=== PATIENT | female | born 1955 ===

== ENCOUNTER 2021-01-27 00:13 | Inpatient (IN) | payer OTHER ==
[~2021-01-27] VITALS: Ht 160 cm; Wt 48.1 kg
[2021-01-27 02:02] LABS: BASOPHILS ABSOLUTE AUTO 0.09 K/mm3 (0.00-0.23); BASOPHILS PERCENT AUTO 1 % (0-2); EOSINOPHILS ABSOLUTE AUTO 0.17 K/mm3 (0.00-0.68); EOSINOPHILS PERCENT AUTO 2 % (0-6); Hematocrit 40.1 % (33.0-51.0); Hemoglobin 12.7 g/dL (11.5-16.0); IMMATURE GRAN ABSOLUTE AUTO 0.02 K/mm3 (0.00-0.10); IMMATURE GRAN PERCENT AUTO 0 % (0-1); LYMPHOCYTES ABSOLUTE AUTO 1.83 K/mm3 (0.84-5.20); LYMPHOCYTES PERCENT AUTO 24 % (21-46); MONOCYTES ABSOLUTE AUTO 0.57 K/mm3 (0.16-1.47); MONOCYTES PERCENT AUTO 7 % (4-13); Mean Corpuscular HGB 30.8 pg (26.0-34.0); Mean Corpuscular HGB Conc 31.7 g/dL (31.5-36.5); Mean Corpuscular Volume 97 fL (80-100); Mean Platelet Volume 10.3 fL (9.1-12.4); NEUTROPHILS ABSOLUTE AUTO 5.01 K/mm3 (1.96-9.15); NEUTROPHILS PERCENT AUTO 65 % (41-73); Platelet Count 226 K/mm3 (150-400); RDW Coefficient Variation 13.2 % (11.7-14.2); RDW Standard Deviation 47.3 fL (35.1-46.3); Red Blood Cell Count 4.13 M/mm3 (3.80-5.20); White Blood Cell Count 7.69 K/mm3 (4.00-11.30)
[2021-01-27 02:20] LABS: Anion Gap 5 mmol/L (6-16); Blood Urea Nitrogen 14 mg/dL (8-24); Bun/Creatinine Ratio 18.4 (12.0-20.0); CO2, Blood 27 mmol/L (21-32); Calcium, Blood 8.8 mg/dL (8.5-10.1); Chloride, Blood 112 mmol/L (98-108); Creatinine, Blood 0.76 mg/dL (0.40-1.00); Glomerular Filtration Rate >60 (60-); Glucose, Blood 109 mg/dL (70-99); Potassium, Blood 3.6 mmol/L (3.5-5.5); Sodium, Blood 144 mmol/L (136-145); Troponin I 0.249 ng/mL (0.000-0.040)
[2021-01-27] MEDS ORDERED: TRAM50 PO (03:29)
[2021-01-27] MEDS ORDERED: ZOLPIDEM TARTRA10 MG PO (03:30)
[2021-01-27] MEDS ORDERED: OMEP20ER (03:30)
[2021-01-27] MEDS ORDERED: PANTOPRAZOLE SO40 M2 PO (03:30)
[2021-01-27] MEDS ORDERED: Prozac20 MG PO (03:32)
[2021-01-27] MEDS ORDERED: OMEP20ER PO (03:32)
[2021-01-27 03:37] LABS: Influenza A, PCR NEGATIVE (NEGATIVE); Influenza B, PCR NEGATIVE (NEGATIVE); Resp Syncytial Virus, PCR NEGATIVE (NEGATIVE); SARS-Cov-2 (COVID-19) PCR, MMC NEGATIVE (NEGATIVE)
[2021-01-27 05:00] LABS: Anti-Xa UFH, PHA Monitoring <0.10 IU/mL; International Normalized Ratio 0.95
[2021-01-27 08:14] LABS: CHOL/HDL RATIO 4.6; Cholesterol 269 mg/dL (50-200); HDL Cholesterol 59 mg/dL (>39); LDL/HDL RATIO 3.2; Low Density Lipoprotein Chol 187 mg/dL (0-110); Triglycerides 116 mg/dL (30-160); Very Low Density Lipoprot Chol 23 mg/dL (6-32)
[2021-01-27 08:15] LABS: Alanine Aminotransfer (ALT/SGP 40 U/L (12-78); Albumin, Blood 3.4 g/dL (3.4-5.0); Albumin/Globulin Ratio 0.9 (0.8-1.8); Alk Phos 99 U/L (50-136); Anion Gap 5 mmol/L (6-16); Aspartate Aminotrans (AST/SGOT 34 U/L (12-37); Bilirubin, Total 0.3 mg/dL (0.1-1.0); Blood Urea Nitrogen 11 mg/dL (8-24); CO2, Blood 25 mmol/L (21-32); Calcium, Blood 9.2 mg/dL (8.5-10.1); Chloride, Blood 112 mmol/L (98-108); Creatinine, Blood 0.61 mg/dL (0.40-1.00); Globulin, Blood 3.7 g/dL (2.2-4.0); Glomerular Filtration Rate >60 (60-); Glucose, Blood 104 mg/dL (70-99); Sodium, Blood 142 mmol/L (136-145); Total Protein, Blood 7.1 g/dL (6.4-8.2)
[2021-01-27 08:21] LABS: CHOL/HDL RATIO 4.6; Cholesterol 265 mg/dL (50-200); HDL Cholesterol 57 mg/dL (>39); LDL/HDL RATIO 3.2; Low Density Lipoprotein Chol 185 mg/dL (0-110); Triglycerides 117 mg/dL (30-160); Very Low Density Lipoprot Chol 23 mg/dL (6-32)
[2021-01-27 08:28] LABS: BASOPHILS ABSOLUTE AUTO 0.09 K/mm3 (0.00-0.23); BASOPHILS PERCENT AUTO 1 % (0-2); EOSINOPHILS ABSOLUTE AUTO 0.22 K/mm3 (0.00-0.68); EOSINOPHILS PERCENT AUTO 3 % (0-6); Hematocrit 40.4 % (33.0-51.0); Hemoglobin 13.1 g/dL (11.5-16.0); IMMATURE GRAN ABSOLUTE AUTO 0.01 K/mm3 (0.00-0.10); IMMATURE GRAN PERCENT AUTO 0 % (0-1); LYMPHOCYTES ABSOLUTE AUTO 2.98 K/mm3 (0.84-5.20); LYMPHOCYTES PERCENT AUTO 37 % (21-46); MONOCYTES ABSOLUTE AUTO 0.69 K/mm3 (0.16-1.47); MONOCYTES PERCENT AUTO 9 % (4-13); Mean Corpuscular HGB 30.5 pg (26.0-34.0); Mean Corpuscular HGB Conc 32.4 g/dL (31.5-36.5); Mean Corpuscular Volume 94 fL (80-100); Mean Platelet Volume 10.4 fL (9.1-12.4); NEUTROPHILS ABSOLUTE AUTO 4.11 K/mm3 (1.96-9.15); NEUTROPHILS PERCENT AUTO 51 % (41-73); Platelet Count 254 K/mm3 (150-400); RDW Coefficient Variation 13.1 % (11.7-14.2); RDW Standard Deviation 45.3 fL (35.1-46.3); Red Blood Cell Count 4.29 M/mm3 (3.80-5.20)
--- NOTE | 2021-01-27 18:54 | NUR ---
ADMIT NOTE RECEIVED REPORT FROM ED RN AND BEDSIDE REPORT FROM FAMILY NURSE. PT TO ROOM VIA BED POST ANGIO AT APPROX 1435. RIGHT RADIAL SITE; HAND IN PURPLE IN COLOR, COLD TO TOUCH AND REPORTS NUMBNESS AND TINGLING; 6cc REMOVED FROM TR BANDS; SOSA RN AT BEDSIDE TO ASSIST WITH RECOVERY AND ADMISSION. DR HERNANDEZ AT BEDSIDE SEVERAL TIMES, RELEASING AIR FROM TR BAND AND REINFLATING IT; PT REPORTING INCREASED PAIN AND SWELLING TO HAND AND AT APPRXO 1640 DR HERNANDEZ TO BEDSIDE, REMOVED TR BANDS AND HELD MANUAL PRESSURE FOR APPROX 50 MINUTES; NEW ORDER FOR MORPHINE AND PROAMTINE, GIVEN PER ORDERS. AT 1730 TEGADERM PLACED TO RIGHT RADIAL SITE, NO ADDITIONAL BLEEDING OR OOZING NOTED TO SITE, EXTENSIVE BRUISING NOTED TO FOREARM, PETECHIAE TO BACK ON HAND AND FINGERS, FOREARM AND HAND STILL SWOLLEN BUT IMPROVED, PT REPORTS LESSENING OF PAIN. IN ADDITION PT REPORTS ACUTE PAIN TO NECK AND BACK AND CHRONIC PAIN TO SHOULDER, MEDICATE PER EMAR. PT DENIES SOB, NASUEA AND DIZZINESS. ALERT AND ORIENTED, COOPERATIVE WITH CARE. VSS. PLANS FOR CTA; ATTEMPTED SEVERAL TIME FOR IV OR MIDLINE WITH NO SUCCESS, NOTIFIED [employer] THEY WILL NEED TO USE 20G IN WRIST. NO OTHER ACUTE CHANGES NOTED. REPORT GIVEN TO ONCOMING RN.
--- NOTE | 2021-01-28 05:42 | NUR ---
SHIFT SUMMARY PT A&OX4, PLEASANT. SP02>92% ON RA. TELEMETRY READS NSR, HR 80'S. BP SOFT. PT HAS R RADIAL SITE. BRUISNG/HEMATOMA/SWELLING NOTED. ARM ELEVATED ON PILLOWS W/ ICE PACK ON AND OFF T/O SHIFT. ARM BOARD IN PLACE. NO BLEEDING NOTED. PT USED BSC W/ MINIMAL ASSISTANCE TO VOID. NO BM THIS SHIFT. PT DOWN TO IMAGING AT START OF SHIFT, TRANSPORTED BY WHEELCHAIR. PT HAD "ADOPTED DAUGHTER" STOP BY TO CHECK ON HER BRIEFLY WHEN SHE GOT BACK FROM CT. PT C/O OF 05/31 PAIN. MEDICATED PER EMAR. PT SLEPT MOST OF NIGHT. FLUIDS INFUSED PER EMAR. CALL LIGHT IN REACH. WILL GIVE REPORT TO ONCOMING NURSE.
[2021-01-28] MEDS ORDERED: ASPI81CH PO (12:42)
[2021-01-28] MEDS ORDERED: ATOR40TA PO (12:42)
--- NOTE | 2021-01-28 14:37 | NUR ---
DISCHARGE SUMMARY PT A&Ox4, COOPERATIVE WITH CARE, IRRITABLE AT TIMES. PT UP IN ROOM IND. COMPLYING WITH ACTIVITY RESTRICTIONS. PT DENIES CHEST PAIN, SOB, AND NAUSEA. PT REPORTS CHRONIC SHOULDER PAIN, DENIES NEEDS FOR MEDICATION. THIS AFTERNOON PT WAS HYPOTENSIVE; NOTIFIED DR BUCKNER; NEW ORDERS FOR 250cc BOLUS OF NS. BP TRENDING UP; DR BUCKNER NOTIFIED, ORDERS TO CONTINUE WITH DISCHARGE. RIGHT RADIAL SITE BRUISING AND SWELLING FROM HAND TO FOREARM AND PETECHAEI TO BACK OF HAND; HOWEVER IMPROVED FROM YESTERDAY. PT ENCOURAGED TO KEEP ELEVATED. NO OTHER ACUTE CHANGES NOTED DURING SHIFT. EDUCATED PT ON DISCHARGE INSTRUCTIONS, FOLLOW UP APPOINTMENTS, MEDICATION AND WOUND CARE. PT LEFT ROOM AT APPROX 1415 VIA WHEELCHAIR.
== END 2021-01-28 13:15 | disposition home or self-care (01) | DRG 287 ==
LOC: ER 00:13 → ERHOLD 00:14 → PCU 00:14
PROVIDERS: Internal Medicine; Student in an Organized Health Care Education/Training Program; ADMIT Internal Medicine
PROC: 4A023N7 Measurement of Cardiac Sampling and Pressure, Left Heart, Percutaneous Approach (ICD-10-PCS; principal; 2021-01-27)
PROC: B2111ZZ Fluoroscopy of Multiple Coronary Arteries using Low Osmolar Contrast (ICD-10-PCS; 2021-01-27)
DX: I25.10 Atherosclerotic heart disease of native coronary artery without angina pectoris (principal); I71.2 Thoracic aortic aneurysm, without rupture; R91.1 Solitary pulmonary nodule; K21.9 Gastro-esophageal reflux disease without esophagitis; Z86.73 Personal history of transient ischemic attack (TIA), and cerebral infarction without residual deficits; Z98.890 Other specified postprocedural states; Z20.822 Contact with and (suspected) exposure to COVID-19; Z66 Do not resuscitate; Z88.8 Allergy status to other drugs, medicaments and biological substances; Z79.899 Other long term (current) drug therapy; Z79.82 Long term (current) use of aspirin; F32.A Depression, unspecified; G89.29 Other chronic pain; M54.2 Cervicalgia; F51.04 Psychophysiologic insomnia; I70.8 Atherosclerosis of other arteries; I49.5 Sick sinus syndrome
CPT/HCPCS: 0241U; 36415; 71046; 71275; 76937; 80048; 80053; 80061; 83036; 84484; 85025; 85347; 85520; 85610; 93005; 93010; 93246; 93306; 93458; 93571; 96374; 96375; 99152; 99153; A9270; C1769; C1887; C1894; C9113; J1644; J1885; J2250; J2270; J2720; J3010; J7030; J7050; Q9967